=== PATIENT | male | born 1990 | race Caucasian/White ===

== ENCOUNTER 2019-04-30 20:51 | Inpatient (IN) | payer BC ==
[2019-04-30] MEDS ORDERED: SOD CHLORIDE 0.9% 1,000 ML IV (20:55)
[2019-04-30] MEDS ORDERED: ONDANSETRON 4 MG INJ IV ×2 (21:00→23:30)
[2019-04-30] MEDS ORDERED: morphine 2 MG INJ IV (21:00)
[2019-04-30] MEDS ORDERED: ACETAMINOPHEN 325 MG TAB PO (21:00)
[2019-04-30] MEDS ORDERED: VANCOMYCIN IV PER PHARMACY XX (21:00)
[2019-04-30] MEDS ORDERED: NACL 0.9% 3 ML SYG IV (21:00)
[2019-04-30] MEDS: ONDANSETRON 4 MG INJ IV (22:15)
[2019-04-30] MEDS: morphine 4 MG/ML VIAL IV (22:16)
[2019-04-30] MEDS: VANCOMYCIN HCL 2 GM in SOD CHLORIDE 0.9% 500 ML IVPB (22:30)
[2019-04-30] MEDS ORDERED: MIDAZOLAM 1 MG/ML 2 ML INJ (22:50)
[2019-04-30] MEDS ORDERED: FENTAnyl 50 MCG/ML VIAL ×2 (22:50→23:05)
[2019-04-30] MEDS ORDERED: KETAMINE (50 MG/ML) 10 ML VIAL (22:50)
[2019-04-30] MEDS ORDERED: LIDOCAINE 2% (SDV) 5 ML INJ (23:14)
[2019-04-30] MEDS ORDERED: PROPOFOL 20 ML (23:14)
[2019-04-30] MEDS ORDERED: MEPERIDINE 25 MG INJ IV (23:30)
[2019-04-30] MEDS ORDERED: IBUPROFEN 600 MG TAB PO (23:30)
[2019-04-30] MEDS ORDERED: hydrALAzine 20 MG INJ IV (23:30)
[2019-04-30] MEDS ORDERED: LABETALOL HCL 20MG INJ IV (23:30)
[2019-04-30] MEDS ORDERED: FENTAnyl 50 MCG/ML VIAL IV (23:30)
[2019-04-30] MEDS ORDERED: METOCLOPRAMIDE 10 MG INJ IV (23:30)
[2019-04-30] MEDS ORDERED: DIPHENHYDRAMINE 50 MG INJ IV ×2 (23:30)
[2019-04-30] MEDS ORDERED: HYDROmorphONE 1 MG/5 ML IV SYRINGE IV ×2 (23:30)
[2019-05-01] MEDS: D5W-0.45 NACL + KCL 20 MEQ 1,000 ML IV ×3 (00:43→19:17)
[2019-05-01] MEDS: PIPER-TAZO 3.375 GM IV (PMX) 100 ML IVPB ×5 (00:43→23:26)
[2019-05-01] MEDS: morphine 2 MG INJ IV ×6 (00:50→23:27)
[2019-05-01 03:19] LABS: ADD MAN DIFF? NO
[2019-05-01 03:23] LABS: WHITE BLOOD COUNT 18.8 10^3/ul (4.8-10.8)
[2019-05-01 03:23] LABS: BASOPHIL # 0.1 10^3/ul (0.0-0.1); BASOPHILS % 0.5 % (0.0-2.0); EOSINOPHILS # 0.1 10^3/ul (0.0-0.5); EOSINOPHILS % 0.3 % (0.0-7.0); HEMATOCRIT 45.1 % (42.0-52.0); HEMOGLOBIN 15.1 g/dl (14.0-18.0); LYMPHOCYTES # 1.5 10^3/ul (0.8-2.9); LYMPHOCYTES % 7.9 % (15.0-51.0); MEAN CORPUSCULAR HEMOGLOBIN 30.3 pg (29.0-33.0); MEAN CORPUSCULAR HGB CONC 33.5 g/dl (32.0-37.0); MEAN CORPUSCULAR VOLUME 90.6 fl (82.0-101.0); MONOCYTE # 0.9 10^3/ul (0.3-0.9); MONOCYTES % 4.6 % (0.0-11.0); NEUTROPHIL # 16.2 10^3/ul (1.6-7.5); PLATELET COUNT 228 10^3/UL (140-415); RED BLOOD COUNT 4.98 10^6/ul (4.70-6.10); RED CELL DISTRIBUTION WIDTH 12.1 % (11.5-14.5)
[2019-05-01 03:56] LABS: ALANINE AMINOTRANSFERASE 34 IU/L (13-69); ALBUMIN 3.5 g/dl (3.3-4.9); ALBUMIN/GLOBULIN RATIO 0.97; ALKALINE PHOSPHATASE 54 IU/L (42-121); ANION GAP 8 (5-13); ASPARTATE AMINO TRANSFERASE 20 IU/L (15-46); BILIRUBIN,INDIRECT 1.3 mg/dl (0-1.1); BILIRUBIN,TOTAL 1.3 mg/dl (0.2-1.3); BLOOD UREA NITROGEN 10 mg/dl (7-20); CALCIUM 8.3 mg/dl (8.4-10.2); CARBON DIOXIDE 31 mmol/L (21-31); CHLORIDE 101 mmol/L (97-110); CHOL/HDL RATIO 5.2 RATIO; CHOLESTEROL 121 mg/dl (100-200); CREATININE 0.78 mg/dl (0.61-1.24); Estimated GFR > 60 mL/min (>60); GLUCOSE 161 mg/dl (70-220); HDL CHOLESTEROL 23 mg/dl (28-63); LDL CHOLESTEROL,CALCULATED 84 mg/dl; SODIUM 140 mmol/L (135-144); TOTAL PROTEIN 7.1 g/dl (6.1-8.1); TRIGLYCERIDES 71 mg/dl (0-149)
[2019-05-01 04:23] LABS: HEMOGLOBIN A1C 5.9 % (0-5.9)
[2019-05-01 04:25] LABS: THYROID STIMULATING HORMONE 0.647 MIU/L (0.465-4.680)
[2019-05-01 04:35] LABS: ERYTHROCYTE SEDIMENTATION RATE 34 mm/Hr (0-15)
[2019-05-01 04:45] LABS: C-REACTIVE PROTEIN 17.1 mg/dl (0.0-0.9)
[2019-05-01] MEDS: HYDROCODONE/APAP (5/325) TAB PO ×3 (06:33→17:48)
[2019-05-01] MEDS: HEPARIN 5,000 UNIT/1 ML VIAL SC ×2 (09:00→20:12)
[2019-05-01] MEDS: VANCOMYCIN 1.5 GM/NS 250 ML 250 ML IVPB ×2 (09:25→17:48)
[2019-05-02] MEDS: VANCOMYCIN 1.5 GM/NS 250 ML 250 ML IVPB ×2 (00:39→08:43)
[2019-05-02] MEDS: HYDROCODONE/APAP (5/325) TAB PO ×2 (00:57→12:12)
[2019-05-02 05:17] LABS: ADD MAN DIFF? NO
[2019-05-02] MEDS: D5W-0.45 NACL + KCL 20 MEQ 1,000 ML IV ×3 (05:17→16:48)
[2019-05-02 05:21] LABS: WHITE BLOOD COUNT 17.9 10^3/ul (4.8-10.8)
[2019-05-02 05:21] LABS: BASOPHIL # 0.1 10^3/ul (0.0-0.1); BASOPHILS % 0.5 % (0.0-2.0); EOSINOPHILS # 0.3 10^3/ul (0.0-0.5); EOSINOPHILS % 1.7 % (0.0-7.0); HEMATOCRIT 44.4 % (42.0-52.0); HEMOGLOBIN 14.7 g/dl (14.0-18.0); LYMPHOCYTES % 11.2 % (15.0-51.0); MEAN CORPUSCULAR HEMOGLOBIN 30.1 pg (29.0-33.0); MEAN CORPUSCULAR HGB CONC 33.1 g/dl (32.0-37.0); MEAN CORPUSCULAR VOLUME 90.8 fl (82.0-101.0); MEAN PLATELET VOLUME 11.8 fl (7.4-10.4); MONOCYTES % 5.7 % (0.0-11.0); NEUTROPHIL # 14.4 10^3/ul (1.6-7.5); NEUTROPHILS % 80.3 % (39.0-77.0); PLATELET COUNT 226 10^3/UL (140-415); RED BLOOD COUNT 4.89 10^6/ul (4.70-6.10); RED CELL DISTRIBUTION WIDTH 12.1 % (11.5-14.5)
[2019-05-02] MEDS: PIPER-TAZO 3.375 GM IV (PMX) 100 ML IVPB ×3 (05:50→22:25)
[2019-05-02 05:51] LABS: ALANINE AMINOTRANSFERASE 36 IU/L (13-69); ALBUMIN 3.5 g/dl (3.3-4.9); ALBUMIN/GLOBULIN RATIO 1.02; ALKALINE PHOSPHATASE 67 IU/L (42-121); ANION GAP 6 (5-13); ASPARTATE AMINO TRANSFERASE 23 IU/L (15-46); BILIRUBIN,INDIRECT 1.1 mg/dl (0-1.1); BILIRUBIN,TOTAL 1.1 mg/dl (0.2-1.3); BLOOD UREA NITROGEN 7 mg/dl (7-20); CALCIUM 8.7 mg/dl (8.4-10.2); CARBON DIOXIDE 32 mmol/L (21-31); CHLORIDE 98 mmol/L (97-110); CREATININE 0.72 mg/dl (0.61-1.24); Estimated GFR > 60 mL/min (>60); GLUCOSE 104 mg/dl (70-220); POTASSIUM 3.6 mmol/L (3.5-5.1); SODIUM 136 mmol/L (135-144); TOTAL PROTEIN 6.9 g/dl (6.1-8.1)
[2019-05-02] MEDS: morphine 2 MG INJ IV ×4 (05:53→20:44)
[2019-05-02] MEDS: HEPARIN 5,000 UNIT/1 ML VIAL SC ×2 (08:46→20:46)
[2019-05-02] MEDS ORDERED: COLLAGENASE 5 GM (UD JAR) TOP (10:47)
[2019-05-02] MEDS: KETOROLAC 30 MG INJ IV (13:55)
[2019-05-02] MEDS: VANCOMYCIN HCL 1.75 GM in SOD CHLORIDE 0.9% 500 ML IVPB (16:55)
[2019-05-03] MEDS: HYDROCODONE/APAP (5/325) TAB PO (00:06)
[2019-05-03] MEDS: VANCOMYCIN HCL 1.75 GM in SOD CHLORIDE 0.9% 500 ML IVPB ×2 (00:28→08:29)
[2019-05-03] MEDS: D5W-0.45 NACL + KCL 20 MEQ 1,000 ML IV ×3 (01:17→19:10)
[2019-05-03] MEDS: morphine 2 MG INJ IV ×4 (02:45→19:10)
[2019-05-03] MEDS: PIPER-TAZO 3.375 GM IV (PMX) 100 ML IVPB ×2 (05:05→13:20)
[2019-05-03] MEDS: HEPARIN 5,000 UNIT/1 ML VIAL SC ×2 (08:33→20:59)
[2019-05-03 09:40] LABS: ADD MAN DIFF? NO
[2019-05-03 09:43] LABS: WHITE BLOOD COUNT 13.3 10^3/ul (4.8-10.8)
[2019-05-03 09:43] LABS: BASOPHIL # 0.1 10^3/ul (0.0-0.1); BASOPHILS % 0.7 % (0.0-2.0); EOSINOPHILS # 0.4 10^3/ul (0.0-0.5); EOSINOPHILS % 2.9 % (0.0-7.0); HEMATOCRIT 47.3 % (42.0-52.0); HEMOGLOBIN 15.8 g/dl (14.0-18.0); LYMPHOCYTES # 1.3 10^3/ul (0.8-2.9); LYMPHOCYTES % 9.5 % (15.0-51.0); MEAN CORPUSCULAR HEMOGLOBIN 30.3 pg (29.0-33.0); MEAN CORPUSCULAR HGB CONC 33.4 g/dl (32.0-37.0); MEAN CORPUSCULAR VOLUME 90.8 fl (82.0-101.0); MEAN PLATELET VOLUME 11.1 fl (7.4-10.4); MONOCYTE # 0.7 10^3/ul (0.3-0.9); MONOCYTES % 4.9 % (0.0-11.0); NEUTROPHIL # 10.9 10^3/ul (1.6-7.5); NEUTROPHILS % 81.4 % (39.0-77.0); PLATELET COUNT 268 10^3/UL (140-415); RED BLOOD COUNT 5.21 10^6/ul (4.70-6.10); RED CELL DISTRIBUTION WIDTH 12.1 % (11.5-14.5)
[2019-05-03 10:15] LABS: ALANINE AMINOTRANSFERASE 31 IU/L (13-69); ALBUMIN 3.8 g/dl (3.3-4.9); ALBUMIN/GLOBULIN RATIO 0.95; ALKALINE PHOSPHATASE 67 IU/L (42-121); ANION GAP 4 (5-13); ASPARTATE AMINO TRANSFERASE 23 IU/L (15-46); BILIRUBIN,INDIRECT 0.8 mg/dl (0-1.1); BILIRUBIN,TOTAL 0.8 mg/dl (0.2-1.3); BLOOD UREA NITROGEN 6 mg/dl (7-20); CALCIUM 9.2 mg/dl (8.4-10.2); CARBON DIOXIDE 35 mmol/L (21-31); CHLORIDE 98 mmol/L (97-110); CREATININE 0.72 mg/dl (0.61-1.24); Estimated GFR > 60 mL/min (>60); GLUCOSE 123 mg/dl (70-220); POTASSIUM 3.8 mmol/L (3.5-5.1); SODIUM 137 mmol/L (135-144); TOTAL PROTEIN 7.8 g/dl (6.1-8.1)
[2019-05-03] MEDS: COLLAGENASE 5 GM (UD JAR) TOP (14:26)
[2019-05-03] MEDS: CIPROFLOXACIN 500 MG TAB PO (17:14)
[2019-05-03] MEDS: KETOROLAC 30 MG INJ IV (20:58)
[2019-05-04] MEDS: morphine 2 MG INJ IV ×4 (01:23→20:25)
[2019-05-04 06:37] LABS: ADD MAN DIFF? NO
[2019-05-04 06:41] LABS: BASOPHIL # 0.1 10^3/ul (0.0-0.1); BASOPHILS % 0.7 % (0.0-2.0); EOSINOPHILS # 0.4 10^3/ul (0.0-0.5); EOSINOPHILS % 3.6 % (0.0-7.0); HEMOGLOBIN 15.6 g/dl (14.0-18.0); LYMPHOCYTES # 1.8 10^3/ul (0.8-2.9); MEAN CORPUSCULAR HEMOGLOBIN 30.1 pg (29.0-33.0); MEAN CORPUSCULAR HGB CONC 33.2 g/dl (32.0-37.0); MEAN CORPUSCULAR VOLUME 90.7 fl (82.0-101.0); MEAN PLATELET VOLUME 10.7 fl (7.4-10.4); MONOCYTE # 0.6 10^3/ul (0.3-0.9); MONOCYTES % 5.5 % (0.0-11.0); NEUTROPHIL # 8.4 10^3/ul (1.6-7.5); NEUTROPHILS % 73.6 % (39.0-77.0); PLATELET COUNT 272 10^3/UL (140-415); RED BLOOD COUNT 5.18 10^6/ul (4.70-6.10)
[2019-05-04 06:41] LABS: WHITE BLOOD COUNT 11.4 10^3/ul (4.8-10.8)
[2019-05-04] MEDS: CIPROFLOXACIN 500 MG TAB PO ×2 (06:53→17:35)
[2019-05-04 07:19] LABS: ALANINE AMINOTRANSFERASE 31 IU/L (13-69); ALBUMIN 3.5 g/dl (3.3-4.9); ALBUMIN/GLOBULIN RATIO 1.02; ALKALINE PHOSPHATASE 60 IU/L (42-121); ANION GAP 8 (5-13); ASPARTATE AMINO TRANSFERASE 24 IU/L (15-46); BILIRUBIN,INDIRECT 0.7 mg/dl (0-1.1); BILIRUBIN,TOTAL 0.7 mg/dl (0.2-1.3); BLOOD UREA NITROGEN 9 mg/dl (7-20); CALCIUM 9.4 mg/dl (8.4-10.2); CARBON DIOXIDE 33 mmol/L (21-31); CHLORIDE 99 mmol/L (97-110); CREATININE 0.82 mg/dl (0.61-1.24); Estimated GFR > 60 mL/min (>60); GLUCOSE 99 mg/dl (70-220); POTASSIUM 4.6 mmol/L (3.5-5.1); SODIUM 140 mmol/L (135-144); TOTAL PROTEIN 6.9 g/dl (6.1-8.1)
[2019-05-04] MEDS: COLLAGENASE 5 GM (UD JAR) TOP (08:39)
[2019-05-04] MEDS: HEPARIN 5,000 UNIT/1 ML VIAL SC ×2 (08:44→21:17)
[2019-05-04] MEDS: HYDROCODONE/APAP (5/325) TAB PO (08:46)
[2019-05-04] MEDS ORDERED: VANCOMYCIN IV PER PHARMACY XX (18:00)
[2019-05-04] MEDS: VANCOMYCIN 1.5 GM/NS 250 ML 250 ML IVPB (20:29)
[2019-05-05] MEDS: DOCUSATE SODIUM 100 MG CAP PO (00:03)
[2019-05-05] MEDS: ACETAMINOPHEN 325 MG TAB PO (00:03)
[2019-05-05] MEDS: BISACODYL (EC) 5 MG TAB PO (00:03)
[2019-05-05] MEDS: morphine 2 MG INJ IV ×2 (00:31→20:48)
[2019-05-05 04:56] LABS: ADD MAN DIFF? NO
[2019-05-05] MEDS: HYDROCODONE/APAP (5/325) TAB PO ×2 (04:57→17:50)
[2019-05-05 05:03] LABS: WHITE BLOOD COUNT 9.4 10^3/ul (4.8-10.8)
[2019-05-05 05:03] LABS: BASOPHIL # 0.1 10^3/ul (0.0-0.1); EOSINOPHILS # 0.5 10^3/ul (0.0-0.5); EOSINOPHILS % 4.8 % (0.0-7.0); HEMATOCRIT 48.1 % (42.0-52.0); HEMOGLOBIN 15.7 g/dl (14.0-18.0); LYMPHOCYTES # 1.4 10^3/ul (0.8-2.9); LYMPHOCYTES % 15.1 % (15.0-51.0); MEAN CORPUSCULAR HGB CONC 32.6 g/dl (32.0-37.0); MONOCYTE # 0.7 10^3/ul (0.3-0.9); MONOCYTES % 6.9 % (0.0-11.0); NEUTROPHIL # 6.8 10^3/ul (1.6-7.5); NEUTROPHILS % 71.6 % (39.0-77.0); PLATELET COUNT 284 10^3/UL (140-415); RED BLOOD COUNT 5.23 10^6/ul (4.70-6.10); RED CELL DISTRIBUTION WIDTH 11.9 % (11.5-14.5)
[2019-05-05] MEDS: VANCOMYCIN 1.5 GM/NS 250 ML 250 ML IVPB ×3 (05:09→20:50)
[2019-05-05 05:24] LABS: ANION GAP 7 (5-13); BLOOD UREA NITROGEN 11 mg/dl (7-20); C-REACTIVE PROTEIN 6.8 mg/dl (0.0-0.9); CALCIUM 9.6 mg/dl (8.4-10.2); CARBON DIOXIDE 34 mmol/L (21-31); CHLORIDE 99 mmol/L (97-110); CREATININE 0.99 mg/dl (0.61-1.24); Estimated GFR > 60 mL/min (>60); GLUCOSE 112 mg/dl (70-220); POTASSIUM 4.1 mmol/L (3.5-5.1); SODIUM 140 mmol/L (135-144)
[2019-05-05 05:42] LABS: PHOSPHORUS 5.6 mg/dl (2.5-4.9)
[2019-05-05 05:42] LABS: MAGNESIUM 1.9 mg/dl (1.7-2.5)
[2019-05-05] MEDS: CIPROFLOXACIN 500 MG TAB PO ×2 (06:24→17:48)
[2019-05-05 07:06] LABS: ERYTHROCYTE SEDIMENTATION RATE 36 mm/Hr (0-15)
[2019-05-05] MEDS: COLLAGENASE 5 GM (UD JAR) TOP (09:29)
[2019-05-05] MEDS: HEPARIN 5,000 UNIT/1 ML VIAL SC ×2 (09:32→20:52)
[2019-05-06] MEDS: HYDROCODONE/APAP (5/325) TAB PO ×2 (00:40→11:13)
[2019-05-06] MEDS: morphine 2 MG INJ IV ×5 (02:21→22:27)
[2019-05-06 04:09] LABS: ADD MAN DIFF? NO
[2019-05-06 04:34] LABS: ANION GAP 7 (5-13); BLOOD UREA NITROGEN 11 mg/dl (7-20); CALCIUM 9.6 mg/dl (8.4-10.2); CARBON DIOXIDE 34 mmol/L (21-31); CHLORIDE 98 mmol/L (97-110); CREATININE 0.84 mg/dl (0.61-1.24); Estimated GFR > 60 mL/min (>60); GLUCOSE 109 mg/dl (70-220); POTASSIUM 3.9 mmol/L (3.5-5.1); SODIUM 139 mmol/L (135-144)
[2019-05-06 04:35] LABS: MAGNESIUM 1.8 mg/dl (1.7-2.5)
[2019-05-06 04:35] LABS: PHOSPHORUS 5.4 mg/dl (2.5-4.9)
[2019-05-06 04:38] LABS: BASOPHIL # 0.1 10^3/ul (0.0-0.1); BASOPHILS % 0.9 % (0.0-2.0); EOSINOPHILS # 0.5 10^3/ul (0.0-0.5); EOSINOPHILS % 5.6 % (0.0-7.0); HEMATOCRIT 50.3 % (42.0-52.0); HEMOGLOBIN 16.5 g/dl (14.0-18.0); LYMPHOCYTES # 1.6 10^3/ul (0.8-2.9); MEAN CORPUSCULAR HEMOGLOBIN 30.1 pg (29.0-33.0); MEAN CORPUSCULAR HGB CONC 32.8 g/dl (32.0-37.0); MEAN CORPUSCULAR VOLUME 91.6 fl (82.0-101.0); MEAN PLATELET VOLUME 10.8 fl (7.4-10.4); MONOCYTE # 0.6 10^3/ul (0.3-0.9); MONOCYTES % 6.6 % (0.0-11.0); NEUTROPHIL # 5.8 10^3/ul (1.6-7.5); NEUTROPHILS % 67.1 % (39.0-77.0); PLATELET COUNT 294 10^3/UL (140-415); RED BLOOD COUNT 5.49 10^6/ul (4.70-6.10); RED CELL DISTRIBUTION WIDTH 11.9 % (11.5-14.5)
[2019-05-06 04:38] LABS: WHITE BLOOD COUNT 8.6 10^3/ul (4.8-10.8)
[2019-05-06 04:49] LABS: VANCOMYCIN,TROUGH 9.4 ug/ml (10.0-20.0)
[2019-05-06] MEDS: CIPROFLOXACIN 500 MG TAB PO ×2 (05:51→17:59)
[2019-05-06] MEDS: VANCOMYCIN 1.5 GM/NS 250 ML 250 ML IVPB (05:51)
[2019-05-06] MEDS: COLLAGENASE 5 GM (UD JAR) TOP (08:35)
[2019-05-06] MEDS: HEPARIN 5,000 UNIT/1 ML VIAL SC ×2 (08:36→22:30)
[2019-05-06] MEDS: VANCOMYCIN HCL 1.75 GM in SOD CHLORIDE 0.9% 500 ML IVPB ×2 (12:42→22:27)
[2019-05-07] MEDS: morphine 2 MG INJ IV ×2 (02:14→06:21)
[2019-05-07] MEDS: HYDROCODONE/APAP (5/325) TAB PO ×2 (04:17→09:17)
[2019-05-07] MEDS: CIPROFLOXACIN 500 MG TAB PO (06:20)
[2019-05-07] MEDS: DOCUSATE SODIUM 100 MG CAP PO (06:20)
[2019-05-07] MEDS: VANCOMYCIN HCL 1.75 GM in SOD CHLORIDE 0.9% 500 ML IVPB (06:21)
[2019-05-07] MEDS: COLLAGENASE 5 GM (UD JAR) TOP (09:16)
[2019-05-07] MEDS: HEPARIN 5,000 UNIT/1 ML VIAL SC (09:21)
== END 2019-05-07 13:30 | disposition home health service (06) | DRG 580 ==
LOC: MS3 22:20 → TEL 05-04 00:12 → E/R 20:51 → MS1 05-04 22:10 → REC 21:00
PROC: 0J9C0ZZ Drainage of Pelvic Region Subcutaneous Tissue and Fascia, Open Approach (ICD-10-PCS; principal; 2019-04-30 22:49)
DX: L02.214 Cutaneous abscess of groin (principal); Z68.43 Body mass index [BMI] 50.0-59.9, adult; L03.314 Cellulitis of groin; E66.01 Morbid (severe) obesity due to excess calories; B95.62 Methicillin resistant Staphylococcus aureus infection as the cause of diseases classified elsewhere; J44.9 Chronic obstructive pulmonary disease, unspecified; G47.30 Sleep apnea, unspecified; R73.03 Prediabetes; B95.8 Unspecified staphylococcus as the cause of diseases classified elsewhere; Z99.89 Dependence on other enabling machines and devices
CPT/HCPCS: 76870; 80048; 80053; 80061; 80202; 83036; 83605; 83735; 84100; 84443; 85025; 85651; 86140; 87070; 94660; 99285-25

== ENCOUNTER 2019-05-12 01:10 | Emergency (ER) | payer BC ==
[2019-05-12] MEDS: DIPHENHYDRAMINE 25 MG CAP PO (01:56)
[2019-05-12] MEDS: predniSONE 20 MG TAB PO (01:56)
== END 2019-05-12 03:11 | disposition home or self-care (01) ==
LOC: FTE 01:10
DX: T37.0X1A Poisoning by sulfonamides, accidental (unintentional), initial encounter (principal); F17.210 Nicotine dependence, cigarettes, uncomplicated
CPT/HCPCS: 99283; J7512